=== PATIENT | female | born 1950 | race Caucasian/White ===

== ENCOUNTER → 2018-01-15 06:22 | Outpatient (CLI) | payer MEDICARE, OTHER, SELFPAY ==
--- NOTE | 2018-01-15 16:59 | STRESSREP ---
Stress Test Report Pharmacologic myocardial perfusion stress test. 67-year-old lady with a history of atypical chest pain. Stress protocol: Resting EKG demonstrates sinus rhythm with rate of 62 bpm normal intervals and noted resting blood pressures 126/72 mmHg. 0.4 mg regadenoson was infused per usual protocol followed by rapid intravenous saline flush injection continuous EKG monitoring was performed. At rest there were no ST or T-wave changes noted suggest abnormal flow reserve at peak infusion no ST or T-wave changes were noted suggest abnormal flow reserve. The resting blood pressure is 126/72 final blood pressure 722/70. Myocardial perfusion protocol. 14.7 mCi of technetium 99m sestamibi was injected at rest. 0.4 mg of regadenoson was infused per usual protocol peak infusion 44.8 mCi of technetium 99m sestamibi was injected stress images were obtained stress and rest images were reconstructed and compared in the short axis vertical long horizontal long axis. Gated images were also obtained pre- Perfusion SPECT analysis: Review of the stress images demonstrate normal uptake of tracer noted in all areas of myocardium except for a small portion of the distal anterior wall. The resting images demonstrate a similar patent with minimal improvement. The above suggest a mild amount of ischemia though this is a low-level stress test. Gated SPECT analysis: The gated ejection fraction is 79%. Conclusion: Pharmacologic myocardial perfusion stress test with possible distal anterior ischemia. False positivity due to scanning with the left arm cannot be completely excluded.
== END ==
PROVIDERS: Family Provider Physician Assistant; PCP Physician Assistant; Visit Provider Internal Medicine Cardiovascular Disease
DX: R07.9 Chest pain, unspecified (principal)
CPT/HCPCS: 78452; 93017; 93306; A9500; A4216; J2785

== ENCOUNTER 2018-01-21 06:51 | Day surgery (SDC) | payer MEDICARE, OTHER, SELFPAY ==
[2018-01-16 12:49] LABS: Partial Thromboplast Time 30.7 Seconds (24.1-36.2); Prothrombin Time (Protime)PT. 13.1 SECONDS (11.7-14.9)
[2018-01-16 13:04] LABS: Anion Gap 7 (5-15); BUN 13 mg/dL (7-18); BUN/Creat Ratio 19.5 RATIO (10-20); Calcium,Total 8.6 mg/dL (8.5-10.1); Chloride 107 mmol/L (98-107); Creatinine, Serum 0.67 mg/dL (0.55-1.02); EST Glomerular Filtration Rate 94 mL/min (>60); Est Glom Filt Rate - Afr Amer 113 mL/min (>60); Glucose 96 mg/dL (74-106); Potassium 3.9 mmol/L (3.5-5.1); Sodium Level 142 mmol/L (136-145)
[2018-01-16 14:09] LABS: Absolute Lymphocyte Count 1.93 X10^3/ul (0.83-4.51); Absolute Neutrophil Count 4.5 X10^3/uL (2.0-7.7); Basophil# 0.03 X10^3/uL; Basophil% 0.4 % (0-1); Hematocrit 38.8 % (37-47); Hemoglobin 11.9 g/dl (12.0-15.0); Lymphocyte # 1.93 X10^3/ul (4.0); Lymphocyte % 25.8 % (19-41); Mean Corp Hgb Conc 30.7 g/gl (32-36); Mean Corpuscular Hgb 28.1 pg (27.0-32.0); Mean Corpuscular Volume 91.7 fL (81-99); Mean Platelet Vol. 10.2 fl (6.2-12.0); Monocyte# 0.66 X10^3/uL; Monocyte% 8.8 % (0-10); Neutrophil # 4.54 X10^3/uL (2.7-7.7); Neutrophil % 60.9 % (47-70); Platelet Count 293 K/mm3 (150-450); RBC Distribution Width CV 14.3 % (11.6-14.6); RBC Distribution Width SD 47.9 fl (35.1-43.9); Red Blood Count 4.23 M/mm3 (4.2-5.4); White Blood Count 7.5 K/mm3 (4.4-11.0)
[2018-01-16 14:11] LABS: POSITIVE COUNT NO; POSITIVE DIFFERENTIAL NO; POSITIVE MORPHOLOGY NO
[2018-01-20 11:45] VITALS: BMI 33.3
--- NOTE | 2018-01-21 07:33 | PCM.HP.BLA ---
History and Physical Date of Admission: 01/21/18 HPI HPI Details: FOREIGN KENT, is a 67 F who presents to [facility] today for left heart catheterization. She has a history of hypertension, hyperlipidemia, and an episode of syncope approximately 5 years ago. At last office visit she described sharp, shooting chest pain. Because of this, she underwent a nuclear stress test that showed possible distal anterior ischemia. She will now proceed with a left heart catheterization for further evaluation. She states having intermittent chest pain for the last 6-7 years. Pt. denies arm, jaw, or neck discomfort. Pt. denies symptoms of CHF, palpitations, lightheadedness, dizziness, near syncope, or syncopal episodes. Pt. denies edema or claudication issues. Pt. denies orthopnea, PND, fever, chills, blood in urine, blood in stool, myalgia, or unexplainable fatigue. Intake Vital Signs 01/21/18 Height 5 ft 5 in 01/21/18 Weight: 200 lb 01/21/18 Body Mass Index (BMI) 33.3 01/21/18 Blood Pressure 135/68 01/21/18 Blood Pressure Location Lt brachial 01/21/18 Blood Pressure Position Sitting 01/21/18 Respiratory Rate 16 01/21/18 Pulse Rate 65 01/21/18 Pulse Source Monitor 01/21/18 Temperature 97.2 F 01/21/18 Temperature Source Oral 01/21/18 Pulse Ox 100 01/21/18 Oxygen Delivery Method room air Intake Visit Reasons: Amb Documentation Allergies ibuprofen Adverse Reaction (Verified 12/18/17 15:38) Unknown iodine contrast Allergy (Severe, Uncoded 01/20/18 15:41) Shortness of breath, swelling Medications alendronate 70 mg effervescent tablet 70 mg PO QWEEK 12/18/17 [History Confirmed 01/20/18] atorvastatin 20 mg tablet 20 mg PO QHS tab 12/18/17 [History Confirmed 01/20/18] calcium carbonate-vitamin D3 600 mg (1,500 mg)-400 unit capsule 1 cap PO DAILY 12/18/17 [History Confirmed 01/20/18] lisinopril 10 mg-hydrochlorothiazide 12.5 mg tablet 1 tab PO QDAY 12/18/17 [History Confirmed 01/20/18] aspirin 81 mg tablet,delayed release 81 mg PO QDAY #30 tab 01/16/18 [Rx Confirmed 01/16/18] clopidogrel 75 mg tablet 75 mg PO QDAY #30 tab 01/16/18 [Rx Confirmed 01/16/18] Diphenhydramine HCl [Diphenhist] 25 mg PO UD 01/20/18 [History Confirmed 01/20/18] Prednisone 20 mg PO UD 01/20/18 [History Confirmed 01/20/18] PFSH Medical History Abnormal nuclear stress test (Acute) Chest pain (Acute) Hypertension (Chronic) Abnormal electrocardiogram (Acute) Dyslipidemia (Chronic) Decreased bone density (Chronic) Surgical History History of tubal ligation (Chronic) Family History Uncle Myocardial infarction Social History Smoking Status: Former smoker ROS Const Const: Negative for fatigue, weakness, difficulty sleeping, frequent falls, headache(s) or excessive sweating Eyes Eyes: Negative for loss of peripheral vision, transient loss of vision, blurry vision or double vision ENT ENT: Negative for headache(s) or balance problems Cardio Chest Pain: Yes (Intermittent for the past 7 years. ) Character: sharp (knife like pain), tightness Onset: at rest Duration: minutes Exacerbation: rest Edema: None Muscle aches with walking: None Resp Respiratory: Negative for SOB with activity, SOB at rest, SOB orthopnea\SOB lying down or paroxysmal nocturnal dyspnea GI GI: Negative nausea or heartburn : Negative for hematuria Musc Musc: Negative for muscle aches/ myalgia, muscle weakness, joint pain or balance problems Skin Skin: Negative non-healing lesions, unusual bruising or rash Neuro Neuro: Negative for weakness, frequent falls, headache(s), blurry vision or double vision Dennis Hematologic/Lymphatic: Negative for easy bruising Endo Endo: Negative for fatigue or excessive sweating Psych Psych: Negative for anxiety or depression Allergy Allergy/Immunology: Negative for rash Cardiology Exam Const Appearance: cooperative, healthy appearing, well developed, well groomed and no acute distress Nutritional Appearance: well nourished and average body habitus Orientation: alert, awake and oriented x3 Head Head: normal to inspection, normocephalic and atraumatic Ears: hearing grossly normal bilaterally and external ears normal Nose: external nose normal, no nasal discharge Face and Sinus: face symmetric Mouth: oral mucosae normal and tongue normal Teeth and gingiva: dentition normal Eyes General: appearance normal, both eyes and all related structures Eyelids: eyelids normal Conjunctivae: conjunctivae normal Pupils: PERRL EOM: EOM intact bilaterally Neck Neck: normal visual inspection, trachea midline and no JVD JVD: +5 Carotids: normal carotid upstroke Chest Chest inspection: normal inspection of the chest, symmetric chest movement and normal respiratory effort Auscultation: Bilateral: Clear to Auscultation Cardio Palpation: normal PMI Rate: regular rate Rhythm: regular rhythm Heart sounds: S1 normal, S2 normal and normal, physiologic split S2; negative rub, gallop or murmur GI GI: normal to inspection Neuro General: alert, awake, oriented x3, no focal sensory deficit, gait normal and moves all extremities Skin Skin: no rashes or lesions noted Extremities Pulses: Normal: Right Posterior Tibial Pulse, Left Posterior Tibial Pulse, Right Radial Pulse, Left Radial Pulse Lower Extremity Edema: None: Bilateral Musculoskel Musculoskeletal: No joint tenderness Psych Psychological: normal affect Supplemental Info Echocardiogram from January 2018 showed normal LV size, estimated ejection fraction of 70%, and stage I diastolic dysfunction. Stress test from January [address] or T-wave changes suggestive of abnormal flow reserve and nuclear images showed possible distal anterior ischemia. Ejection fraction was reported at 79% Assessment & Plan 1. Chest pain, unspecified type R07.9 Plan - LAUREN Greco This has been evaluated with both echocardiogram and nuclear stress test. The nuclear stress test in January 2018 showed possible distal anterior ischemia. She continues to state intermittent episodes of chest pain. She will undergo a left heart catheterization for further evaluation. Further recommendations will be made after results of this test. 2. Essential hypertension I10 Plan - LAUREN Greco Patient's blood pressure is well-controlled today. We will continue to monitor this. We will not make any medication regimen changes. 3. Dyslipidemia E78.5 Plan - LAUREN Greco She will continue with current statin medication. Plan Detail Additional Comments - LAUREN Greco Discussed the above patient with Dr. Bledsoe, he agrees with the plan of care. Thank you for allowing us to participate in the patients plan of care, if you have any questions please do not hesitate to call. This note was generated using a voice recognition system and there may be incorrect words, spelling or punctuation that were not noted when reviewing the office note prior to saving. Coding Diagnoses Chest pain, unspecified type R07.9 Chest pain type: unspecified Essential hypertension I10 Hypertension type: essential hypertension Dyslipidemia E78.5 Coding Diagnoses Chest pain, unspecified type R07.9 Chest pain type: unspecified Essential hypertension I10 Hypertension type: essential hypertension Dyslipidemia E78.5
== END 2018-01-21 11:01 ==
LOC: CLSP 06:51
PROVIDERS: Family Provider Physician Assistant; PCP Physician Assistant; Visit Provider Internal Medicine Cardiovascular Disease
DX: R07.9 Chest pain, unspecified (principal); I10 Essential (primary) hypertension; E78.5 Hyperlipidemia, unspecified; R94.39 Abnormal result of other cardiovascular function study; Z79.02 Long term (current) use of antithrombotics/antiplatelets; Z79.82 Long term (current) use of aspirin; Z79.52 Long term (current) use of systemic steroids; Z79.899 Other long term (current) drug therapy; Z87.891 Personal history of nicotine dependence; R94.31 Abnormal electrocardiogram [ECG] [EKG]
CPT/HCPCS: 36415; 71046; 80048; 85025; 85610; 85730; 93458; 99152; 99153; C1760; J7040; A4216; C1769; Q9967